=== PATIENT | male | born 1970 | race Caucasian/White ===

== ENCOUNTER 2021-08-10 14:50 | Emergency (ER) | payer OTHER ==
[~2021-08-10] VITALS: Ht 177.8 cm; Wt 110.2 kg
[2021-08-10 15:31] VITALS: BP 157/79
--- NOTE | 2021-08-10 15:37 | NUR ---
ARRIVAL PATIENT ARRIVED TO [facility]BULAT[facility], C/O RIGHT EAR PAIN AND DRAINAGE TODAY, CAME TO THE ED FOR EVAL, DOCTOR ESPINOZA TO THE ROOM TO SEE PATIENT.
--- NOTE | 2021-08-10 15:58 | ER.PDOC ---
General Chief Complaint: Earache Stated Complaint: RT PAIN EAR & DRAINAGE Time seen by MD: 15:30 Source: patient Exam Limitations: no limitations History of Present Illness Initial Comments 50-year-old male presents for evaluation of drainage from his right ear. He was in his usual state of health had some mild congestion and noted that he started to have fluid draining from his right ear. He does not have any significant pain. No fevers to report. Recently traveled from his home to here not in airplane. No impairment of his hearing per his report. No bleeding. Denies head trauma. Allergies: Coded Allergies: Penicillins (Verified Allergy, Unknown, ., 08/10/21) Past Medical History Medical History: no pertinent history Surgical History: other Family History Significant Family History: no pertinent family hx Social History Smoking: cigarettes Alcohol Use: none Drug Use: none Reviewed Nursing Reviewed: Vital Signs, Abn. Noted, Nursing Assessment Constitutional: no symptoms reported Eyes: no symptoms reported Ears: see HPI Nose: see HPI Mouth: no symptoms reported Throat: no symptoms reported Respiratory: no symptoms reported Cardiovascular: no symptoms reported Gastrointestinal: no symptoms reported Musculoskeletal: no symptoms reported Skin: no symptoms reported Neurological: no symptoms reported Hematologic/Lymphatic: no symptoms reported Immunological/Allergic: no symptoms reported All Other Systems: Reviewed and Negative Physical Exam General Appearance: alert, no distress Ears: auricle, external. canal nml TM's: nml (Left tympanic membrane unremarkable.), loss of landmarks (R) (Absence of tympanic membrane on the right. There is clear/pink fluid noted. Consistent with tympanic membrane rupture.) Mouth/Throat: lips/gums nml, pharynx nml Nose: nml inspection Head/Neck: atraumatic, neck nml inspection Eyes: eyes nml inspection, PERRL Resp/CVS: no resp distress Abdomen: non-tender Skin Exam: Normal Color, Warm/Dry NEURO/PSYCH: oriented X3, mood/effect nml Additional Procedures Progress Earwick placement to the right ear. A 1.5 cm ear wick was placed into the right ear canal for tympanic membrane rupture and to aid in antibiotic administration. Patient tolerated procedure well. Results/Orders Results/Orders Vital Signs Date Time Temp Pulse Resp B/P (MAP) Pulse Ox O2 Delivery O2 Flow Rate FiO2 08/10/21 15:31 98.4 88 18 96 08/10/21 15:31 98.4 88 18 08/10/21 15:31 98.4 88 18 157/79 (105) 96 Room Air Progress Progress Clinically patient has tympanic membrane rupture on the right. No signs of systemic infection. No signs of mastoiditis. Afebrile with no tenderness noted there. You were placed in prescribed antibiotics. Patient strongly encouraged follow-up with ENT doctor when she returns home. He does not live in [place] so referral to local specialist not necessary as he is leaving tomorrow. ER DEPART Departure Time of Disposition: 15:57 Disposition: 01 HOME / SELF CARE / HOMELESS Impression: Primary Impression: Tympanic membrane rupture Condition: Improved Referrals: PCP,UNKNOWN (PCP) PRIMARY CARE PROVIDER Duration or Time Spent with Pa: 15 Problem Qualifiers Primary Impression: Tympanic membrane rupture Laterality: right Qualified Codes: H72.91 - Unspecified perforation of tympanic membrane, right ear MANDY ESPINOZA DO Aug 10, 2021 15:58
== END 2021-08-10 15:54 | disposition home or self-care (01) ==
LOC: ER 14:50
DX: H72.91 Unspecified perforation of tympanic membrane, right ear (principal); Z88.0 Allergy status to penicillin
CPT/HCPCS: 99284